=== PATIENT | female | born 1965 | race Hispanic/Latino ===

== ENCOUNTER 2022-06-07 07:14 | Emergency (ER) | payer MEDICARE ==
[~2022-06-07] VITALS: Ht 165.1 cm; Wt 82.6 kg
[~2022-06-07 07:14] MED LIST: ACCUNEB1.25 MG/3; ADVAIR 100-501 EACH; GLUCOPHAGE500 MG PO; HYDROCHLOROTH12.5 M1 PO; HYDROCHLOROTHIA25 MG PO
[2022-06-07] MEDS ORDERED: METOCLOPRAMIDE HCL 10 MG/2ML VIAL IV ONE (07:30)
[2022-06-07] MEDS ORDERED: ACETAMINOPHEN 325 MG TAB PO ONE (07:30)
[2022-06-07 07:44] LABS: BASOPHILS % 0.3 % (0.0-1.0); EOSINOPHILS # (AUTO) 0.1 (0.0-0.4); EOSINOPHILS % 1.5 % (0.0-6.0); HEMATOCRIT 43.3 % (34.2-44.1); HEMOGLOBIN 13.3 g/dL (12.0-16.0); LYMPHOCYTES # (AUTO) 1.7 (1.0-3.2); LYMPHOCYTES % 26.5 % (18.0-39.1); MEAN CORPUSCULAR HEMOGLOBIN 29.4 pg (28-32); MEAN CORPUSCULAR HGB CONC 30.7 g/dL (31-35); MEAN CORPUSCULAR VOLUME 95.6 fL (81-99); MONOCYTES # (AUTO) 0.3 (0.2-0.8); MONOCYTES % 5.2 % (4.4-11.3); NEUTROPHILS # (AUTO) 4.3 (2.1-6.9); NEUTROPHILS % 66.3 % (38.7-80.0); PLATELET COUNT 213 x10e3/uL (140-360); RED BLOOD COUNT 4.53 x10e6/uL (3.6-5.1); RED CELL DISTRIBUTION WIDTH 13.3 % (11.7-14.4)
[2022-06-07 08:16] LABS: LIPASE 17 U/L (8-78)
[2022-06-07 08:18] LABS: ALBUMIN 3.9 g/dL (3.5-5.0); ALBUMIN/GLOBULIN RATIO 1.2 (0.8-2.0); CALCIUM 9.6 mg/dL (8.4-10.2); CREATININE, SERUM 1.07 mg/dL (0.57-1.11)
[2022-06-07] MEDS ORDERED: ONDANSETRON HCL INJ 2MG/ML 2ML 2 MG/ML VIAL IV STA (08:33)
[2022-06-07] MEDS ORDERED: ONDANSETRON ODT4 MG PO (09:19)
== END 2022-06-07 09:34 | disposition home or self-care (01) ==
LOC: ER 07:18
DX: R07.9 Chest pain, unspecified (principal); R51.9 Headache, unspecified; I10 Essential (primary) hypertension; E03.9 Hypothyroidism, unspecified; Z85.818 Personal history of malignant neoplasm of other sites of lip, oral cavity, and pharynx; Z86.718 Personal history of other venous thrombosis and embolism
CPT/HCPCS: 36415; 70450; 71045; 80053; 83690; 83880; 84484; 85025; 93005; 99284; J2405; J2765

== ENCOUNTER → 2024-04-12 | Outpatient (REF) | payer MEDICARE, OTHER ==
[~2024-04-12] MED LIST changes: +LIDOPATCH1 EACH TOP; +ONDANSETRON ODT4 MG PO
== END ==
LOC: DX 09:55
PROVIDERS: ATTEND Family Medicine Adult Medicine
DX: M85.88 Other specified disorders of bone density and structure, other site (principal)
CPT/HCPCS: 77080

== ENCOUNTER → 2024-10-26 | Outpatient (REF) | payer MEDICARE, OTHER | LOC: RAD 10:27 | PROVIDERS: ATTEND Family Medicine Adult Medicine | DX: M54.6 Pain in thoracic spine (principal); M54.50 Low back pain, unspecified; Z91.81 History of falling | CPT/HCPCS: 72072; 72110 ==

== ENCOUNTER → 2024-12-22 | Outpatient (REF) | payer MEDICARE, OTHER | LOC: RAD 08:57 | PROVIDERS: ATTEND Family Medicine Adult Medicine | DX: M79.605 Pain in left leg (principal); M79.604 Pain in right leg | CPT/HCPCS: 93922; 93925; 93970 ==